=== PATIENT | female | born 1950 | race Caucasian/White ===

== ENCOUNTER → 2025-03-13 | Outpatient (REF) | payer MEDICARE ==
[~2025-03-13] MED LIST: FAMOTIDINE20 MG PO; LIPITOR20 MG PO; OMEPRAZOLE40 MG PO; STIOLTO RESPIMAT4 G2 INH; VENTOLIN HFA18 GM INH; VERAPAMIL ER120 M1 PO
[2025-03-13 13:26] LABS: BASOPHILS % 1.4 % (0.0-1.0); EOSINOPHILS % 2.8 % (0.0-6.0); LYMPHOCYTES % 15.6 % (18.0-39.1); MONOCYTES % 9.3 % (4.4-11.3); NEUTROPHILS % 70.7 % (38.7-80.0); RED CELL DISTRIBUTION WIDTH 15.2 % (11.7-14.4)
== END ==
LOC: RAD 13:00 → EDSTATUS 03-21 10:30
PROVIDERS: ATTEND Internal Medicine Gastroenterology
DX: Z01.810 Encounter for preprocedural cardiovascular examination (principal); Z01.812 Encounter for preprocedural laboratory examination; Z12.11 Encounter for screening for malignant neoplasm of colon; K59.00 Constipation, unspecified; R10.13 Epigastric pain; Z72.0 Tobacco use; E78.00 Pure hypercholesterolemia, unspecified; J45.909 Unspecified asthma, uncomplicated
CPT/HCPCS: 36415; 85025; 93005

== ENCOUNTER → 2025-04-18 | Day surgery (SDC) | payer MEDICARE ==
[~2025-04-18] MED LIST changes: +BROMELAINS500 MG PO; +CEFDINIR300 MG PO; +FENTANYL CITRATE/PF 100MCG/2 ML INJ ONE; +LIDOCAINE HCL 2% LOCAL INJ 5 ML SDV VIAL INJ ONE; +PROPOFOL IV EMULSION 10 MG/ML 20 ML VIAL ONE; +VITAMIN D350 MCG PO; +[UNRECOGNIZED DRUG - OTHER] PO; +iron PO
[2025-04-18] MEDS: LACTATED RINGER'S 1,000 ML ONE (08:56)
[2025-04-18 09:07] LABS: BASOPHILS % 0.9 % (0.0-1.0); EOSINOPHILS % 2.7 % (0.0-6.0); LYMPHOCYTES % 11.6 % (18.0-39.1); MONOCYTES % 7.9 % (4.4-11.3); NEUTROPHILS % 76.6 % (38.7-80.0); RED CELL DISTRIBUTION WIDTH 15.5 % (11.7-14.4)
[2025-04-18 11:50] VITALS: TEMP 97.1
[2025-04-18 12:05] VITALS: BP 127/68; PULSE 62; RESP 16; O2SAT 99
== END | disposition home or self-care (01) ==
LOC: OR 07:49
PROVIDERS: ATTEND Internal Medicine Gastroenterology
DX: K59.00 Constipation, unspecified (principal); K29.30 Chronic superficial gastritis without bleeding; K44.9 Diaphragmatic hernia without obstruction or gangrene; K57.30 Diverticulosis of large intestine without perforation or abscess without bleeding; K21.9 Gastro-esophageal reflux disease without esophagitis; I10 Essential (primary) hypertension; J44.9 Chronic obstructive pulmonary disease, unspecified; F41.9 Anxiety disorder, unspecified; F17.200 Nicotine dependence, unspecified, uncomplicated; Z79.899 Other long term (current) drug therapy; Z68.24 Body mass index [BMI] 24.0-24.9, adult
CPT/HCPCS: 36415; 43239; 45330; 85025; 88305; J2003; J2704; J3010; J7121; 45378